=== PATIENT | female | born 1960 | race Two or more races ===

== ENCOUNTER 2020-09-28 08:13 | Inpatient (IN) | payer MEDICAID ==
[~2020-09-28] VITALS: Ht 167.6 cm; Wt 56.7 kg
[2020-09-28 09:13] LABS: BASOPHILS % 0.7 % (0.0-2.0); EOSINOPHILS % 2.8 % (0.0-5.0); HEMATOCRIT. 36.1 % (36.0-48.0); HEMOGLOBIN. 11.9 g/dL (12.0-16.0); LYMPHOCYTES % 51.5 % (20.0-50.0); MEAN CORPUSCULAR HEMOGLOBIN 30.8 pg (28.0-32.0); MEAN CORPUSCULAR VOLUME 93.4 fL (81.0-99.0); MEAN PLATELET VOLUME 10.7 fl (7.4-10.4); MONOCYTES % 7.6 % (2.0-8.0); NEUTROPHILS % 37.4 % (40.0-76.0); PLATELET 140 x1000/uL (130-400); RED BLOOD CELL COUNT 3.86 mill/uL (4.2-5.4); RED CELL DISTRIBUTION WIDTH 14.9 % (11.6-14.6)
[2020-09-28] MEDS ORDERED: LEVETIRACETAM 1000MG PREMIX 100 ML IV ONE (09:15)
[2020-09-28 09:16] LABS: CHLORIDE 110 mEq/L (98-107)
[2020-09-28 09:25] LABS: ETHANOL BLOOD < 10 mg/dL
[2020-09-28 09:43] LABS: CARBAMAZEPINE < 0.5 ug/mL (4-12); PHENOBARBITAL < 2.1 ug/mL (15.0-40.0); VALPROIC ACID < 3.0 ug/mL (50-100)
[2020-09-28] MEDS ORDERED: LORAZEPAM 2MG/ML CPJ IM STA (13:26)
[2020-09-28] MEDS ORDERED: HALOPERIDOL LACTATE 5MG/ML VIAL IM ONE (13:30)
[2020-09-28] MEDS ORDERED: LORAZEPAM 2MG/ML CPJ IM ONE (19:15)
[2020-09-29] MEDS ORDERED: ONDANSETRON HCL 4MG/2ML INJ IV PRN ×2 (00:45)
[2020-09-29] MEDS ORDERED: LORAZEPAM 2MG/ML CPJ IV PRN (00:45)
[2020-09-29 00:53] VITALS: BP 113/58
[2020-09-29] MEDS: LEVETIRACETAM 500MG PREMIX 100 ML IV SCH ×3 (02:27→21:34)
[2020-09-29] MEDS: SODIUM CHL 0.9% + KCL 20MEQ/L 1,000 ML IV SCH ×2 (02:27→11:09)
[2020-09-29 04:00] VITALS: BP 142/63
[2020-09-29 06:33] LABS: BASOPHILS % 0.8 % (0.0-2.0); EOSINOPHILS % 2.5 % (0.0-5.0); HEMATOCRIT. 36.7 % (36.0-48.0); HEMOGLOBIN. 12.1 g/dL (12.0-16.0); LYMPHOCYTES % 41.4 % (20.0-50.0); MEAN CORPUSCULAR HEMOGLOBIN 30.7 pg (28.0-32.0); MEAN CORPUSCULAR VOLUME 93.5 fL (81.0-99.0); MEAN PLATELET VOLUME 11.3 fl (7.4-10.4); MONOCYTES % 11.9 % (2.0-8.0); NEUTROPHILS % 43.4 % (40.0-76.0); PLATELET 123 x1000/uL (130-400); RED BLOOD CELL COUNT 3.92 mill/uL (4.2-5.4)
[2020-09-29 06:37] LABS: CHLORIDE 111 mEq/L (98-107)
[2020-09-29 08:00] VITALS: BP 118/61
[2020-09-29 12:00] VITALS: BP 133/73
[2020-09-29 16:00] VITALS: BP 122/52
[2020-09-29 20:00] VITALS: BP 114/57
[2020-09-30] VITALS: BP 118/55
[2020-09-30 05:58] VITALS: BP 102/63
[2020-09-30 15:23] VITALS: BP 100/80
== END 2020-09-30 15:35 | disposition home or self-care (01) | DRG 53 ==
LOC: ER 08:20 → 8WST 20:07 → ENRESERV 22:51
PROVIDERS: ADMIT Internal Medicine; ATTEND Internal Medicine
DX: G40.409 Other generalized epilepsy and epileptic syndromes, not intractable, without status epilepticus (principal); F03.90 Unspecified dementia, unspecified severity, without behavioral disturbance, psychotic disturbance, mood disturbance, and anxiety; E87.8 Other disorders of electrolyte and fluid balance, not elsewhere classified; L65.9 Nonscarring hair loss, unspecified; D72.819 Decreased white blood cell count, unspecified; G31.9 Degenerative disease of nervous system, unspecified; F79 Unspecified intellectual disabilities
CPT/HCPCS: 36415; 80048; 80053; 80156; 80165; 80184; 80185; 80320; 85025; 99291; C1893; J1630; J1953; J2060; J3480; G0480